=== PATIENT | male | born 1955 | race Caucasian/White ===

== ENCOUNTER → 2017-07-25 | Outpatient (CLI) | payer OTHER | LOC: FIMAGING 08:46 | PROVIDERS: ATTEND Family Medicine Sports Medicine | DX: N28.1 Cyst of kidney, acquired (principal); Q63.0 Accessory kidney ==

== ENCOUNTER 2018-01-19 06:21 | Inpatient (IN) | payer OTHER ==
--- NOTE | 2018-01-18 15:23 | GHP ---
ADMISSION DIAGNOSIS: Adenocarcinoma of the prostate. HISTORY OF PRESENT ILLNESS: This is a 62-year-old gentleman whose primary care is Dr. Tobias, and he has had elevated PSA and biopsy reveals adenocarcinoma of the prostate. He has had an MRI preproced ure that showed a PI-RADS 4. He has a 4K score of 55%. He was a Christina score 6, and his PSA preop in July of 2017 would be 5.98. Prostate volume was 25. He is a clinical stage T1c with [place] scor e 6. He has reviewed his options of therapy. He has elected to undergo robotic-assisted radical pro statectomy and pelvic lymph node dissection. The pathology revealed a biopsy of the right apex that showed [place] score 6 in 75% of the biopsy core, and in the left mid prostate, Christina 6 in 2% of th e core. In the region of interest on the prostate biopsy, the MRI revealed [place] 6 in 40% of the c ore, and at the present time with the multiple cores having cancer, Christina score and his youthful ag e, he has elected to be treated. PAST HISTORY: Positive for glaucoma, hypertension. PAST SURGICAL HISTORY: Cataracts, inguinal hernia, and ultrasound biopsy of the prostate. MEDICATION: Atorvastatin, hydrochlorothiazide, metoprolol. ALLERGY LIST: Prednisone. FAMILY HISTORY: Kidney stones and hypertension. SOCIAL HISTORY: Moderate alcohol consumption. Former tobacco smoker. REVIEW OF SYSTEMS: Negative for cardiac, respiratory, GI, and endocrine. PHYSICAL EXAMINATION: VITAL SIGNS: Stable. CHEST: Clear. HEART: Regular rate and rhythm. ABDOM EN: Normal. No organomegaly, rebound, or guarding. LOWER EXTREMITIES: Normal. PROSTATE: Benign in nature on physical exam. PLAN: At the present time, he is admitted for the robotic-assisted radical prostatectomy and bilater al pelvic lymphadenectomy. Indication, complications, and options have all been discussed. Written and verbal consent have been obtained. He is admitted as an outpatient for the above procedure. /[id number]/MODL
[2018-01-19] MEDS ORDERED: LIDOCAINE 1% 2 ML INJ ID PRN (06:41)
[2018-01-19] MEDS ORDERED: LR 1,000 ML IV ONE (06:41)
--- NOTE | 2018-01-19 07:19 | PDANEPAE ---
ANE History of Present Illness prostate ca ANE Past Medical History - Cardiovascular History Hx Hypertension: Yes Hx Arrhythmias: No Hx Chest Pain: No Hx Coronary Artery / Peripheral Vascular Disease: No Hx CHF / Valvular Disease: No Hx Palpitations: No - Pulmonary History Hx COPD: No Hx Asthma/Reactive Airway Disease: No Hx Recent Upper Respiratory Infection: No Hx Oxygen in Use at Home: No Hx Sleep Apnea: No Sleep Apnea Screening Result - Last Documented: Negative - Neurologic History Hx Cerebrovascular Accident: No Hx Seizures: No Hx Dementia: No - Endocrine History Hx Diabetes: No Hypothyroid: No Hyperthyroid: No Obesity: no - Renal History Hx Renal Disorders: No Renal History Comment: PROSTATE - Liver History Hx Hepatic Disorders: No - Neurological & Psychiatric Hx Hx Neurological and Psychiatric Disorders: No - Cancer History Hx Cancer: Yes Cancer History Comment: PROSTATE - Congenital Disorder History Hx Congenital Disorders: No - GI History GERD: no Hx Gastrointestinal Disorders: No - Other Health History Other Health History: NEG - Chronic Pain History Chronic Pain: No - Surgical History Prior Surgeries: CATARACTS. L ING HERNIA ANE Review of Systems Review of systems is: negative Review of Systems: - Exercise capacity METS (RN): 5 METS ANE Patient History - Allergies Allergies/Adverse Reactions: prednisolone Allergy (Verified 01/09/18 10:54) Other-Enter Comments - Home Medications Home medications: home medication list seen and reviewed Home Medications: Aspirin [Aspirin 81mg (*)] 162 mg PO DAILY 01/09/18 [Last Taken Unknown] Atorvastatin Calcium [Lipitor 20 mg (*)] 20 mg PO DAILY 01/09/18 [Last Taken Unknown] Cholecalciferol Vit D3 [Vitamin D3 2000 units tab (OTC)] 2,000 units PO DAILY [Last Taken Unknown] Hydrochlorothiazide [HCTZ (*)] 25 mg PO DAILY 01/09/18 [Last Taken Unknown] Metoprolol Succinate Xr [Toprol Xl 100 mg (*)] 100 mg PO DAILY 01/09/18 [Last Taken Unknown] - NPO status NPO Status: no food or drink >8 hours - Anes Hx Anes Hx: no prior problems - Smoking Hx Smoking Status: Former smoker Marijuana use: No - Alcohol Use Alcohol Use: Rarely - Family Anes Hx Family Anes Hx: none Family Hx Anesthesia Complications: NEG ANE Labs/Vital Signs - Vital Signs Height: 177.8 cm Weight: 88.451 kg ANE Physical Exam - Airway Neck exam: FROM Mallampati Score: Class 2 Mouth exam: normal dental/mouth exam - Pulmonary Pulmonary: no respiratory distress, clear to auscultation - Cardiovascular Cardiovascular: regular rate and rhythym, no murmur, rub, or gallop ANE Anesthesia Plan Anesthesia Plan: general endotracheal anesthesia
[2018-01-19] MEDS ORDERED: ceFAZolin 2 GM/DEXTROSE 100 ML IV ONE (07:22)
--- NOTE | 2018-01-19 08:14 | PDHPUP ---
History & Physical Update H&P update statement: This history and physical update is based on an assessment of the patient which was completed after admission or registration (within 24 hours), but prior to the surgery/procedure. H&P update: H&P reviewed & patient examined, no change in patient's condition since H&P completed
[2018-01-19] MEDS ORDERED: PROPOFOL 200 MG/20 ML VIAL ONE (08:17)
[2018-01-19] MEDS ORDERED: fentaNYL 250 MCG/5 ML INJ ONE (08:17)
[2018-01-19] MEDS ORDERED: ROCURONIUM 100 MG/10 ML VIAL ONE (08:18)
[2018-01-19] MEDS ORDERED: LIDOCAINE 2% 5 ML SDV ONE (08:18)
[2018-01-19] MEDS ORDERED: MIDAZOLAM 2 MG/2 ML VIAL ONE (08:21)
[2018-01-19] MEDS ORDERED: BUPIVACAINE/EPI 0.5% 30 ML SDV ONE (09:03)
[2018-01-19] MEDS ORDERED: BUPIVACAINE 0.5% 30 ML SDV ONE (09:03)
[2018-01-19] MEDS ORDERED: hydrALAZINE 20 MG/ML VIAL ONE (09:24)
[2018-01-19] MEDS ORDERED: SURGIFLO MATRIX KIT WITH THROMBIN 8 ML TP ONE (10:48)
[2018-01-19] MEDS ORDERED: THROMBIN (BOVINE) 5,000 UNIT VIAL TP ONE (10:50)
[2018-01-19] MEDS ORDERED: ONDANSETRON 4 MG/2 ML VIAL ONE (10:59)
[2018-01-19] MEDS ORDERED: fentaNYL 100 MCG/2 ML INJ IVP PRN (11:00)
[2018-01-19] MEDS ORDERED: PROMETHAZINE HCL 25 MG/ML INJ IVP PRN (11:00)
[2018-01-19] MEDS ORDERED: LABETALOL HCL 20 MG/4 ML INJ IVP PRN (11:00)
[2018-01-19] MEDS ORDERED: NALOXONE HCL 0.4 MG/ML INJ IVP PRN ×2 (11:00→11:46)
[2018-01-19] MEDS ORDERED: HYDROmorphONE/DILAUDID 2 MG/ML INJ IVP PRN (11:00)
--- NOTE | 2018-01-19 11:01 | POSTANESTH ---
Post Anesthetic Evaluation Cardiovascular Status: Normal, Stable Respiratory Status: Normal, Stable Level of Consciousness/Mental Status: Can Participate in Eval, Moderately Sleepy Pain Control: Adequate, Prn Tx Ordered Nausea/Vomiting Control: Adequate, Prn Tx Ordered Complications Possibly Related to Anesthesia: None Noted
[2018-01-19] MEDS ORDERED: SUGAMMADEX SODIUM 200 MG/2 ML VIAL IVP ONE (11:07)
--- NOTE | 2018-01-19 11:32 | POSTOPPROG ---
Post Op Note Date of Operation: 01/19/18 (dictated) Surgeon: Sid Hsieh Security Software Engineer: Joseph Anesthesiologist: Celean Anesthesia: GET(General Endotracheal) Pre-op Diagnosis: prostate cancer Procedure: RA-RRP and PLND Inf/Abcess present in the surg proc area at time of surgery?: No EBL: Minimal Drains: Yohannes Up, Other (pickett)
[2018-01-19] MEDS ORDERED: ONDANSETRON 4 MG/2 ML VIAL IVP PRN (11:45)
[2018-01-19] MEDS ORDERED: ZOLPIDEM TARTRATE 5 MG TAB PO PRN (11:45)
[2018-01-19] MEDS ORDERED: ACETAMINOPHEN 325 MG TAB PO PRN (11:45)
[2018-01-19] MEDS ORDERED: ONDANSETRON DISINTEGRATING 4 MG TAB PO PRN (11:45)
[2018-01-19] MEDS ORDERED: HYDROmorphONE/DILAUDID 6 MG/30 ML PCA IV PRN (11:46)
--- NOTE | 2018-01-19 12:05 | PDMN ---
Medical Necessity Medical necessity: [facility] S960 prostatectomy 1 day INPT only OP: RA-RRP and PLND- prostate Ca.
[2018-01-19] MEDS ORDERED: fentaNYL 100 MCG/2 ML INJ ONE (12:08)
--- NOTE | 2018-01-19 12:16 | GOP ---
DATE OF OPERATION: 01/19/2018 SURGEON: Sid Hsieh MD HOTEL HOUSEKEEPER: Binta Ruiz CFA. ANESTHESIOLOGIST: Concepción Dallas MD. Scrub was Summers, automatic drilling machine operator Ethan, and other staff Tristian. PREOPERATIVE DIAGNOSIS: Prostate cancer. POSTOPERATIVE DIAGNOSIS: Prostate cancer. PROCEDURE PERFORMED: FINDINGS: SPECIMENS: Sent to Pathology. He will be admitted for postoperative care. DESCRIPTION OF PROCEDURE: After undergoing general anesthesia and being placed on table for robotic access to his pelvis, he was prepped and draped in a normal sterile fashion. Time-out was appropriat e. He had a Busch catheter placed and 20 cc balloon inflated. At that point, a Veress needle was pl aced in the supraumbilical site, and his abdomen was inflated to 15 mmHg pressure of CO2. Then I jeri norah three 8 mm robot arm ports, and a 12 mm operator assistant i cementing port under direct vision and then was able to m obilize sigmoid colon after docking the robot. Then brought the sigmoid out of the pelvis and did a posterior dissection. First, we incised the peritoneum, identified the vas deferens, transected thos e, and then the seminal vesicles dissected out. Hemostasis provided with Hem-o-loks and dissected in Denonvilliers space so I could separate the rectum from the prostate. Then at that point, dropped the bladder down by taking down the obliterated umbilical vessels and the urachus, and hemostasis via the cauterization. Then at that point, the endopelvic fascia on the rig ht and left sides identified. It was incised and the puboprostatic ligaments taken down sharply and could identify the apex of the prostate. The apical vessels anterior to the urethra were ligated wit h 0 Vicryl M stitch and then transected the bladder neck and mobilized the bladder off the base of th e prostate, taking care to preserve the circular fibers of the bladder neck. Then mobilized the left side of the prostate. It should be said that got into the fatty tissue and it appeared that he may have had some inflammation, maybe tumor going through the capsule, but I tried to make it to where th ere was no gross disease left behind, and that was carried to the apex of the prostate on the left an d the same thing on the right side. I transected the urethra and then used a Quill stitch as a runni ng anastomosis to the urethra and the bladder neck. It was tested after being bridged with a Busch c atheter. It was watertight and irrigated clear. At that point, the pelvic lymph node dissection was carried out on the left side first using the obtu rator nerves at the depth of the incision, the bifurcation of the common iliac vessel, the cephalad p art of the dissection, the mid aspect of the external iliac vein as a lateral dissection, and hemosta sis provided with Hem-o-loks as well as lymph stasis. The same thing was performed on the right side . Specimen sent separately. The specimen was placed in a bag and then was able to use Surgiflo over the anterior bladder anastomotic site and 10 Yohannes-Up drain was placed. The specimen was broug ht through the camera port. Then, the linea alba was approximated with an 0 Vicryl and subcutaneous tissue was hemostatic. Skin was closed with 4-0 Monocryl. The operator assistant i cementing port was closed with a sutu re closure device 0 Vicryl. Estimated blood loss per Anesthesia was less than 50 mL. COMPLICATIONS: None. /[id number]/MODL
[2018-01-19] MEDS ORDERED: ACETAMINOPHEN 325 MG TAB ONE (12:33)
[2018-01-19] MEDS: ASPIRIN 81 MG CHEWABLE TAB PO SCH (13:32)
[2018-01-19] MEDS: METOPROLOL SUCCINATE XR 100 MG TAB PO SCH (13:39)
[2018-01-19] MEDS: ATORVASTATIN CALCIUM 20 MG TAB PO SCH (13:39)
[2018-01-19] MEDS: CHOLECALCIFEROL VIT D3 2,000 UNITS TAB/CAP PO SCH (13:40)
[2018-01-19] MEDS: HYDROCHLOROTHIAZIDE 25 MG TAB PO SCH (13:40)
[2018-01-19] MEDS: oxyCODONE IR 5 MG TAB PO PRN ×2 (14:39→20:50)
[2018-01-20] MEDS: oxyCODONE IR 5 MG TAB PO PRN ×3 (01:20→10:53)
[2018-01-20 05:36] LABS: PLATELET COUNT 127 10^3/uL (150-400)
[2018-01-20 08:00] VITALS: BP 127/74
[2018-01-20] MEDS: ASPIRIN 81 MG CHEWABLE TAB PO SCH (08:00)
[2018-01-20] MEDS: HYDROCHLOROTHIAZIDE 25 MG TAB PO SCH (08:01)
[2018-01-20] MEDS: ATORVASTATIN CALCIUM 20 MG TAB PO SCH (08:01)
[2018-01-20] MEDS: CHOLECALCIFEROL VIT D3 2,000 UNITS TAB/CAP PO SCH (08:01)
[2018-01-20] MEDS: METOPROLOL SUCCINATE XR 100 MG TAB PO SCH (08:01)
--- NOTE | 2018-01-20 09:53 | ASDISCHSUM ---
Discharge Information Plan Status:Home with No Needs Medically Cleared to Leave: Discharge Date: D/C Disposition:Home, Routine, Self-Care ADT D/C Disposition: Projected Discharge Date: Transportation at D/C:Family Discharge Delay Reason: Follow-Up Date: Discharge Slot: Final Diagnosis: Placement Information Patient Contact Information Contact Name:KLAUDIA Relationship: Address:[address] [place] [address] City:[place] Alternate Phone: [facility]/Zip Code:[place] [address] Email: Financial Information [facility] Primary Plan Desc:[facility] H[facility] OPEN ACC LOCAL Primary Plan Number:[id number] Secondary Plan Desc: Secondary Plan Number: Assessment Information LACE LACE Length of stay for Answers: 1 day current admission Acuity / Level of Answers: Yes Care: Did the patient have an inpatient admission? Comorbidities - select Answers: Any tumor (including all that apply lymphoma or leukemia) Other Notes: HTN # of Emergency department Answers: 0 visits in the last 6 months Score: 7 Date Signed: 01/20/2018 09:50 AM Electronically Signed By:Leticia Schmitz Intervention Information
--- NOTE | 2018-01-20 10:20 | GDS ---
PREOPERATIVE DIAGNOSIS: Prostate cancer. POSTOPERATIVE DIAGNOSIS: Prostate cancer. HOSPITAL COURSE: This is a pleasant 62-year-old male who was evaluated in our office and found to garcia ve prostate cancer on biopsy. After full discussion of his options, he elected to undergo a robotic prostatectomy with bilateral lymph node dissection. This was done without difficulty. He is being d ischarged home in good condition with a Busch catheter in place to be removed in our office in 10 day s. /[id number]/MODL
== END 2018-01-20 12:39 | disposition home or self-care (01) | DRG 708 ==
LOC: F3N 06:21 → F1N 07:26
PROVIDERS: ADMIT Specialist; ATTEND Specialist
DX: C61 Malignant neoplasm of prostate (principal); H40.9 Unspecified glaucoma; I10 Essential (primary) hypertension
CPT/HCPCS: J0360; J0690; J2250; J2405; J2704; J3010